=== PATIENT | male | born 1965 | race Asian ===

== ENCOUNTER → 2020-05-09 08:08 | Outpatient (CLI) | payer OTHER, SELFPAY ==
[2020-05-09 08:58] LABS: COVID19 -Nasal RAPID Negative (Negative)
== END ==
PROVIDERS: PCP Family Medicine; Visit Provider Nurse Practitioner
DX: Z20.822 Contact with and (suspected) exposure to COVID-19 (principal)
CPT/HCPCS: 87635

== ENCOUNTER → 2020-07-15 09:19 | Outpatient (CLI) | payer OTHER, SELFPAY ==
[2020-07-15 11:11] LABS: COVID19 -Nasal RAPID Negative (Negative)
== END ==
PROVIDERS: PCP Family Medicine; Visit Provider Physician Assistant
DX: Z01.812 Encounter for preprocedural laboratory examination (principal); Z20.822 Contact with and (suspected) exposure to COVID-19
CPT/HCPCS: 87635

== ENCOUNTER 2020-07-17 12:25 | Day surgery (SDC) | payer OTHER, SELFPAY ==
--- NOTE | 2020-07-17 | PATH_ITS ---
[facility] Accession Number: [id number] . 01 Material submitted: . rectum - RECTAL POLYP 6MM . 02 Diagnosis: Rectal Polyp 6 mm: Portions of tubular adenoma x2. Portion of hyperplastic polyp x1. [facility] 07/22/2020 1117 Local . 02 Electronically signed: . Arely Sharp MD, Pathologist NPI- [id number] . 01 Gross description: . The specimen is received in formalin, labeled rectal polyp, and consists of three manrique-pink fragments of soft tissue measuring 0.6 x 0.5 x 0.2 cm in aggregate. The specimen is entirely submitted in cassette A1. ([id number]) /[facility] 07/18/2020 1547 Local . 02 Pathologist provided ICD-10: Z12.11, K63.5 . 02 CPT . 889780 Performed at: 01 [facility] [address] [facility], [place], [place] [id number] MD Damaso Beltran MD Phone: [phone] Performed at: 02 [facility] [address] [place], [place] [id number] MD Anahy Marrufo MD Phone: [phone]
--- NOTE | 2020-07-17 11:44 | PM.HP.1 ---
History of Present Illness History of Present Illness Date Patient Seen: 07/17/20 Chief complaint: PRC Narrative: 55 year old female comes in today for consideration of a screening colonoscopy. Last colonoscopy in 2016, had two 3-4 mm tubular adenomas in the ascending colon, one 3 mm polyp in the cecum with no diagnostic abnormality, and one 10 mm polyp in the sigmoid suggesting a mucosal prolapse. There have been no lower GI symptoms suggesting disease such as change in bowel habits, bleeding, abdominal pain or anemia. There's been no family history of colon cancer or colon polyps. Overall health issues have been stable, including no major cardiac events for at least 6 weeks. PCP: Dr. 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 Meds Home Medications and Allergies Home Medications Medication Instructions Recorded Confirmed Type emtricitabine-tenofovir (TDF) 1 tab PO DAILY 07/17/20 07/17/20 History [Truvada] fluticasone propionate [Flonase] 1 spray INTRANASAL PRN PRN 07/17/20 07/17/20 History loratadine [Claritin] 10 mg PO DAILY 07/17/20 07/17/20 History Allergies Allergy/AdvReac Type Severity Reaction Status Date / Time No Known Drug Allergies Allergy Verified 07/17/20 12:39 Review of Systems Review of Systems ROS: Yes All systems reviewed with the patient and are negative except as otherwise documented Exam Narrative Exam Narrative: GENERAL: Alert and oriented, appearing stated age and in no acute distress. HEENT: Head normocephalic/atraumatic. Pupils equal, round, and reactive to light and accomodation. Extraocular muscles intact. Tympanic membranes clear. Nasal mucosa moist, septum midline. Oral mucosa moist, no lesions. Neck soft and supple, no lymphadenopathy. LUNGS: Clear to ausculation bilaterally, no wheezes, rhonchi or rales. CV: Normal S1 and S2 with regular rate and rhythm, no audible murmurs, rubs or gallops. ABDOMEN: Soft, non-tender, non-distended, no organomegaly. Positive bowel sounds. EXTREMITIES: No clubbing, cyanosis, or edema. NEURO: Cranial nerves II through XII grossly intact, no focal deficits. PSYCH: Alert and oriented x 3. SKIN: No concerning lesions. Assessment & Plan Assessment & Plan narrative: 1. History of colon polyps 2. Screening for colon cancer Plan for colonoscopy. The nature and character of the procedure as well as anticipated results were discussed. The possibility of not completing the procedure was also discussed. Possible complications including aspiration pneumonia, bleeding, perforation and reaction to medications either for sedation or preparation and missed lesions were discussed. Questions were answered and proceeding to the colonoscopy was elected. Informed consent signed. I sincerely appreciate the referral allowing me to participate in this patient's care. Please contact me with any questions or concerns.
--- NOTE | 2020-07-17 11:53 | PM.OP.ENDO ---
Operative Date/Time/Diagnoses Date of procedure: 07/17/20 Procedure Notes SCOAP/Timeout: 1:58 p.m. Procedure in detail: ENDOSCOPIST: Samina Montoya MD Sedation RN: Marilou Antonio RN Sedation start time: 1:59 p.m. Sedation end time: 2:17 p.m. PROCEDURE: Colonoscopy with biopsy INDICATIONS: 1. History of colon polyps 2. Screening for colon cancer MEDICATION: Levsin 0.125 mg sublingual, incremental doses of Versed and fentanyl until appropriate level sedation achieved. ASA CLASS: 2 CECAL WITHDRAWAL TIME: 9 minutes COMPLICATIONS: None. EXTENT OF PROCEDURE: Cecum. QUALITY OF PREP: Good with portions of liquid stool. PROCEDURE: Prior to insertion of the colonoscope, a digital rectal examination was accomplished with circumferential palpation of the distal rectal mucosa without significant findings being noted. The high-definition colonoscope was passed into the rectum in the usual fashion and advanced over to the cecum without difficulty. The ileocecal valve, appendiceal stoma, and medial wall all could be inspected and no abnormalities were seen. ASCENDING COLON: As the colonoscope was withdrawn, care was taken to expose and inspect the haustral folds and no abnormalities were seen. HEPATIC FLEXURE: Normal, no polyps, diverticula or other abnormalities. TRANSVERSE COLON: Normal, no polyps, diverticula or other abnormalities. DESCENDING COLON: Normal, no polyps, diverticula or other abnormalities. SIGMOID COLON: Normal, no polyps, diverticula or other abnormalities. RECTUM: A 6 mm polyp was removed with cold biopsy forceps. J maneuver was produced. There was no significant perianal disease. The J maneuver was broken. The remainder of the rectum was inspected and there was minor external hemorrhoid disease. The scope was withdrawn. IMPRESSION: 1. Rectal polyp x1, 6 mm, removed with cold biopsy forceps 2. Mild external hemorrhoid disease PLAN: 1. Follow-up in clinic status post pathology results. The possibility of a missed lesion including a malignancy has been discussed with the patient previously. Potential alarm symptoms have been discussed and should be reported immediately.
[2020-07-17] MEDS: HYOSCYAMINE 0.125 MG TABLET PO (12:47)
[2020-07-17] MEDS: LACTATED RINGERS 1,000 ML 200 ML IV (12:48)
[2020-07-17 12:49] VITALS: BP 142/95; PULSE 71; RESP 16; TEMP 36.6; O2SAT 98; BMI 25.5
[2020-07-17] MEDS: fentaNYL 250 MCG/5 ML INJ IV (13:59)
[2020-07-17] MEDS: MIDAZOLAM 5 MG/5 ML VIAL IV (14:04)
[2020-07-17 14:23] VITALS: BP 111/77; PULSE 58; RESP 16; TEMP 36.6; O2SAT 96
--- NOTE | 2020-07-17 14:24 | SUR.PHASEI ---
Received to PACU after sedation anesthesia. Report received from RUBEN Zamarripa.
[2020-07-17 14:28] VITALS: BP 110/77; PULSE 75; RESP 18; O2SAT 97
[2020-07-17 14:32] VITALS: BP 116/85; PULSE 75; RESP 18; O2SAT 97
[2020-07-17 14:59] VITALS: BP 121/88; PULSE 66; RESP 16; TEMP 36.7; O2SAT 97
== END 2020-07-17 14:58 | disposition home or self-care (01) ==
PROVIDERS: PCP Family Medicine; Referring Provider Student in an Organized Health Care Education/Training Program; Visit Provider Student in an Organized Health Care Education/Training Program
PROC: 0DJD8ZZ Inspection of Lower Intestinal Tract, Via Natural or Artificial Opening Endoscopic (ICD-10-PCS; CPT 45378; principal; 2020-07-17 13:45)
DX: Z12.11 Encounter for screening for malignant neoplasm of colon (principal); Z86.010 Personal history of colon polyps; E78.5 Hyperlipidemia, unspecified; K64.4 Residual hemorrhoidal skin tags; D12.8 Benign neoplasm of rectum
CPT/HCPCS: 45380; J2250; J3010

== ENCOUNTER → 2021-08-17 10:42 | Outpatient (CLI) | payer OTHER, SELFPAY ==
--- NOTE | 2021-08-17 10:45 | DI.RAD.S_ITS ---
PROCEDURE: XR TOE RT MIN 2V INDICATIONS: RIGHT GREAT TOE PAIN TECHNIQUE: 3 views of the 1st toe(s) acquired. COMPARISON: None. FINDINGS: Bones: No fractures or dislocations. No suspicious bony lesions. Soft tissues: No suspicious soft tissue densities. IMPRESSION: Normal right 1st toe Approved by: Ryan Hair M.D. on 08/17/2021 at 11:31
== END ==
PROVIDERS: PCP Family Medicine; Referring Provider Family Medicine; Visit Provider Family Medicine
DX: M79.674 Pain in right toe(s) (principal)
CPT/HCPCS: 73660

== ENCOUNTER → 2022-03-15 09:46 | Outpatient (CLI) | payer OTHER, SELFPAY ==
[2022-03-15 11:30] LABS: Prostate Specific Antigen Scrn 4.11 ng/mL (0.1-4.0)
== END ==
PROVIDERS: PCP Family Medicine; Referring Provider Urology; Visit Provider Urology
DX: Z12.5 Encounter for screening for malignant neoplasm of prostate (principal)
CPT/HCPCS: 36415; G0103

== ENCOUNTER 2022-04-13 07:41 | Day surgery (SDC) | payer OTHER, SELFPAY ==
[2022-04-08 12:36] VITALS: BMI 26.6
[2022-04-13] VITALS (9 sets, daily range): BP systolic 117–132; BP diastolic 76–86; PULSE 66–91; RESP 15–24; TEMP 36.1–37.3; O2SAT 96–98; BMI 26.6
[2022-04-13] MEDS: LACTATED RINGERS 1,000 ML 100 ML IV (07:59)
--- NOTE | 2022-04-13 08:44 | PM.HP.1 ---
History of Present Illness History of Present Illness Date Patient Seen: 04/13/22 Chief complaint: Left Hernia Repair - Inguinal Narrative: 56y.o man with a left inguinal hernia here for open elective inguinal hernia repair. Patient History Medical History (Updated 04/11/22 @ 15:26 by Don Duke MD) Elevated PSA Family history of prostate cancer in father Lower urinary tract symptoms Nocturia Post-void dribbling Secondhand smoke exposure Splitting of urinary stream Surgical History Hx of hernia repair Family & Social History Family History Father Cancer Grandfather Gallstones Grandmother Diabetes mellitus Breast cancer Social History: household members none lives independently Yes Tobacco & Substance use: Smoking Status Never smoker alcohol intake current alcohol intake frequency a few times a month Substance Use Type does not use Meds Home Medications and Allergies Home Medications Medication Instructions Recorded Confirmed Type fluticasone propionate 50 1 spray intranasal PRN PRN 07/17/20 04/13/22 History mcg/actuation nasal allergies spray,suspension tadalafil 5 mg tablet (Cialis) 5 mg PO DAILY Lower urinary tract 09/01/21 04/13/22 Rx symptoms #30 tabs cetirizine 10 mg tablet (Zyrtec) 10 mg PO DAILY 04/08/22 04/13/22 History Allergies Allergy/AdvReac Type Severity Reaction Status Date / Time No Known Drug Allergies Allergy Verified 04/13/22 08:07 Exam Vital Signs (past 8 hours): - 04/13/22 08:10 Temperature 99.1 F Pulse Rate 67 Respiratory Rate 16 Blood Pressure 131/80 Pulse Oximetry 98 Oxygen Delivery Method Room Air Oxygen Delivery Method Room Air Narrative Exam Narrative: Gen-Adult man alert and oriented no distress Abdomen-Left inguinal hernia marked with my initials. Assessment & Plan Assessment and plan (1) Left inguinal hernia: Status: Acute Assessment & Plan narrative: 56M with a symptomatic left inguinal hernia here for elective open left inguinal hernia repair. Questions have been answered. We discussed operative risks including bleeding, infection, reoccurrence, damage to surrounding structures were discussed. He provides his verbal and written consent to proceed. Time Spent With Patient Critical Care time: I spent a total of [] minutes of critical care time on this patient's care today; this time is exclusive of procedural time.
[2022-04-13] MEDS: CEFAZOLIN 2 GM/100 ML PREMIX 100 ML IV (08:58)
--- NOTE | 2022-04-13 09:04 | SUR.OPER ---
Supine on padded OR bed, head on pillow, arms secured on padded arm boards at <90 degrees abduction, legs uncrossed, safety belt at thigh.
[2022-04-13] MEDS: BUPIVACAINE 0.25% (PF) VIAL 30 ML INJ (09:12)
[2022-04-13] MEDS: KETOROLAC 30 MG/ML VIAL IV (10:07)
--- NOTE | 2022-04-13 10:07 | PM.OP.1 ---
Operative Date/Time/Diagnoses Date of procedure: 04/13/22 Time of procedure: 10:08 Pre-op diagnosis: Left inguinal hernia Post-op diagnosis: same Procedure & Clinicians Procedure: Open left inguinal repair with mesh Same procedure as scheduled: Yes Indications: Symptomatic reducible left inguinal hernia Surgeon: Conrad Krishnan Anesthesia Type: General Operative Notes Findings: Direct defect. No indirect hernia Specimen(s): none sent Estimated Blood Loss (mL): 10 Procedure in detail: The patient was placed supine on the table and bilateral lower extremity compression devices were applied. Anesthesia was induced they were intubated with an LMA and received Ancef. A time-out was performed. They were prepped and draped in sterile fashion. The left external inguinal ring and the anterior superior iliac crest were identified and marked. 1 finger breath above the inguinal ligament the skin was infiltrated with 0.25% bupivacaine. The skin incision was made, the subcutaneous tissues were divided with electrocautery exposing the external oblique aponeurosis which was then opened along the direction of its fibers. Using blunt dissection the internal oblique aporneurosis was from the external oblique upper leaflet. The cord was carefully dissected away from the inguinal canal adjacent to the pubic tubercle. The cord including the vas deferens, testicular bloody supply, ilioguinal and genital nerve were encircled with a Flagler drain. A direct floor defect was identified and it was reduced into the abdomen. The cremasteric fibers surrounding the cord were divided adjacent to the internal ring. The vas deferens and the testicular vessels were preserved and protected. The cord contents were carefully explored. There was no evidence of a indirect hernia. A 7x 15 cm lightweight Bard Pro Loop hernia mesh was anchored to the insertion of the rectus muscle at the pubic tubercle such that there was approximately 2 cm of tubercle overlap with Ethibond. The inferior edge of the mesh was secured to the shelving edge of the inguinal ligament using Ethibond. Interrupted 3 0 Vicryl suture was used to anchor the superior aspect of the mesh to the conjoined tendon in several places. The tails were then reapproximated loosely around the spermatic cord. The tails of the mesh were then tucked under the external oblique aponeurosis. The repair was checked for hemostasis. The wound was irrigated with sterile saline. The external oblique aponeurosis was reapproximated in a running fashion using 3 0 Vicryl. The subcutaneous tissues were reapproximated with 3 0 Vicryl skin closed with 4 0 Monocryl followed by the application of Dermabond. At the end of the operation I ensured that both testicles were within the scrotum. The sponge instrument count at the end operation was correct. The patient emerged from anesthesia was extubated and transferred to the postoperative care unit in stable condition. A total of 30 ml of of 0.25% bupivicaine was used to infiltrate the skin. Complications: none Post-operative Condition: stable Disposition: same day surgery
== END 2022-04-13 10:35 | disposition home or self-care (01) ==
PROVIDERS: PCP Family Medicine; Referring Provider Surgery; Visit Provider Surgery
PROC: (CPT 49505; principal; 2022-04-13 08:45)
DX: K40.90 Unilateral inguinal hernia, without obstruction or gangrene, not specified as recurrent (principal)
CPT/HCPCS: 49505; J0690; J1100; J1885; J2250; J2405; J2704; J3010; J3490

== ENCOUNTER → 2022-05-06 11:31 | Outpatient (CLI) | payer OTHER, SELFPAY ==
[2022-05-10 10:11] LABS: PSA Free % 12.3 % (.); PSA, Total 4.8 ng/mL (0.0-4.0)
== END ==
PROVIDERS: PCP Family Medicine; Referring Provider Urology; Visit Provider Urology
DX: R97.20 Elevated prostate specific antigen [PSA] (principal); Z80.42 Family history of malignant neoplasm of prostate
CPT/HCPCS: 36415; 84153; 84154

== ENCOUNTER → 2022-05-30 14:04 | Outpatient (CLI) | payer OTHER, SELFPAY ==
--- NOTE | 2022-05-30 14:06 | DI.MRI.S_ITS ---
PROCEDURE: MR PELVIC PROSTATE PROTOCOL INDICATIONS: Elevated PSA family history of prostate cancer TECHNIQUE: Coronal HASTE, axial T1 FSE with fat saturation, 3-plane nonbreath-hold T2 FSE. After the administration of contrast, dynamic axial, delayed axial and coronal VIBE or 2-D FLASH with fat saturation through the pelvis. Optional diffusion weighted imaging and ADC may be performed. COMPARISON: None. FINDINGS: Image quality: Diffusion weighted and dynamic contrast enhanced images are diagnostic. Prostate: Gland size is 5.3 x 3.4 x 5.9 cm; ellipsoid gland volume is 56 mL. No PI-RADS 3-5 lesions. Genitourinary system: Bladder wall thickness is normal. Bladder wall is trabeculated. Distal ureters are non distended. Bowel and peritoneum: No pathologic free pelvic fluid. Inferior colon and small bowel loops are normal in caliber. Nodes and vessels: No pelvic or inguinal adenopathy by size criteria. Iliac vessels are normal in caliber. Soft tissues: No inguinal hernias. Bones: Marrow demonstrates normal overall signal, without lesions to suggest metastases. IMPRESSION: Prostatomegaly, volume of 56 mL. No PI-RADS 3 5 lesions. Dictated by: Kobe Sosa M.D. on 05/30/2022 at 16:53 Approved by: Kobe Sosa M.D. on 05/30/2022 at 16:55
== END ==
PROVIDERS: PCP Family Medicine; Referring Provider Urology; Visit Provider Urology
DX: R97.20 Elevated prostate specific antigen [PSA] (principal); Z80.42 Family history of malignant neoplasm of prostate
CPT/HCPCS: 72197; A9579

== ENCOUNTER → 2022-08-23 09:23 | Outpatient (CLI) | payer OTHER, SELFPAY ==
[2022-08-26 07:19] LABS: PSA Free % 12.1 % (.); PSA, Total 3.9 ng/mL (0.0-4.0)
== END ==
PROVIDERS: PCP Family Medicine; Referring Provider Urology; Visit Provider Urology
DX: R97.20 Elevated prostate specific antigen [PSA] (principal); Z80.42 Family history of malignant neoplasm of prostate
CPT/HCPCS: 36415; 84153; 84154

== ENCOUNTER → 2022-11-29 10:25 | Outpatient (CLI) | payer OTHER, SELFPAY | PROVIDERS: PCP Family Medicine; Referring Provider Urology; Visit Provider Urology | DX: R97.20 Elevated prostate specific antigen [PSA] (principal) | CPT/HCPCS: 36415; 84153; 84154 ==

== ENCOUNTER → 2023-03-31 11:53 | Outpatient (CLI) | payer OTHER, SELFPAY ==
--- NOTE | 2023-03-31 11:55 | DI.CT.S_ITS ---
PROCEDURE: CT ABDOMEN PELVIS W CON INDICATIONS: L abdominal pain hx left inguinal epigastric hernia repair TECHNIQUE: After the administration of intravenous contrast, axial sections acquired from the lung bases to the pubic symphysis. Coronal and sagittal reformats were performed. For radiation dose reduction, the following was used: automated exposure control, adjustment of mA and/or kV according to patient size. COMPARISON: MR, MR PELVIC PROSTATE PROTOCOL, 05/30/2022, 15:05. FINDINGS: Image quality: Diagnostic. Lower Chest: No significant findings. Small hiatal hernia. ABDOMEN: Liver: There is a 1.1 cm hypodense nodule in the right hepatic lobe, most likely cysts. Mild hepatic steatosis. No solid mass. Gallbladder: Gallbladder is contracted. There are gallstones. Biliary ducts: No biliary dilation. Pancreas: No ductal dilation. Spleen: Size is within normal limits. Adrenal Glands: Bilateral small adrenal nodules, measuring 1.3 cm on the left and 1.0 cm on the right.. Kidneys and Ureters: No hydronephrosis. No solid mass. No complex renal cystic lesion which requires follow up. Stomach and Bowel: There is mild gastric antral thickening likely secondary to inadequate distention. Normal colonic caliber. Mild colonic wall thickening involving the sigmoid colon. There is a large amount of stool in colon and rectum. Normal appendix Peritoneum: No abnormal intraperitoneal fluid. No free air. Ventral Wall: No significant ventral hernia. Abdominal Nodes: No retroperitoneal or mesenteric adenopathy by size criteria. Vessels: Aorta and inferior vena cava are normal in size. PELVIS: Pelvic Organs: Unremarkable. Bladder: No bladder wall thickening, accounting for underdistention. Pelvic Nodes: No enlarged lymph nodes. Miscellaneous: Mild fat stranding in the left inguinal area. No inguinal hernias are seen. There are multiple small subcutaneous nodules in the anterior abdominal wall. Bones: No aggressive osseous abnormality. IMPRESSION: 1. Mild stranding in the right groin likely granulation tissue along the surgical scar. No findings to suggest recurrent hernia, infection or hematoma. 2. Mild wall thickening in the sigmoid colon. Differential diagnoses are mild colitis versus artifact from inadequate distention. 3. Cholelithiasis. 4. Bilateral small adrenal nodules. Recommend adrenal protocol CT or MRI for further evaluation. 5. Prostate is enlarged and heterogeneous. Please correlate with PSA. 6. Numerous small subcutaneous nodules in anterior abdominal wall, uncertain etiology or clinical significance. These could be related to subcutaneous injections. Please correlate clinically. Dictated by: Bobby Montemayor M.D. on 03/31/2023 at 15:08 Approved by: Bobby Montemayor M.D. on 03/31/2023 at 16:19
== END ==
LOC: CT 11:54
PROVIDERS: PCP Family Medicine; Referring Provider Surgery; Visit Provider Surgery
DX: K80.20 Calculus of gallbladder without cholecystitis without obstruction (principal); E27.9 Disorder of adrenal gland, unspecified; N40.0 Benign prostatic hyperplasia without lower urinary tract symptoms; R19.09 Other intra-abdominal and pelvic swelling, mass and lump; R10.9 Unspecified abdominal pain
CPT/HCPCS: 74177; Q9967

== ENCOUNTER → 2023-05-31 10:40 | Outpatient (CLI) | payer OTHER, SELFPAY ==
[2023-05-31 12:25] LABS: Prostate Specific Antigen 4.24 ng/mL (0.10-4.00)
== END ==
LOC: LAB 10:43
PROVIDERS: PCP Family Medicine; Referring Provider Urology; Visit Provider Urology
DX: R97.20 Elevated prostate specific antigen [PSA] (principal)
CPT/HCPCS: 36415; 84153

== ENCOUNTER → 2023-09-01 14:25 | Outpatient (CLI) | payer OTHER, SELFPAY | LOC: LAB 14:26 | PROVIDERS: PCP Family Medicine; Referring Provider Urology; Visit Provider Urology | DX: R97.20 Elevated prostate specific antigen [PSA] (principal); Z80.42 Family history of malignant neoplasm of prostate | CPT/HCPCS: 36415; 84153; 84154 ==

== ENCOUNTER → 2023-12-13 11:03 | Outpatient (CLI) | payer OTHER, SELFPAY | LOC: LAB 11:04 | PROVIDERS: PCP Family Medicine; Referring Provider Urology; Visit Provider Urology | DX: R97.20 Elevated prostate specific antigen [PSA] (principal); Z80.42 Family history of malignant neoplasm of prostate | CPT/HCPCS: 36415; 84153; 84154 ==

== ENCOUNTER → 2024-01-01 13:12 | Outpatient (CLI) | payer OTHER, SELFPAY | PROVIDERS: PCP Family Medicine; Visit Provider Urology | DX: N40.1 Benign prostatic hyperplasia with lower urinary tract symptoms (principal); N13.8 Other obstructive and reflux uropathy; R97.20 Elevated prostate specific antigen [PSA]; Z80.42 Family history of malignant neoplasm of prostate; R39.198 Other difficulties with micturition; Z77.22 Contact with and (suspected) exposure to environmental tobacco smoke (acute) (chronic); R30.0 Dysuria; N41.1 Chronic prostatitis | CPT/HCPCS: 87086 ==

== ENCOUNTER → 2024-01-29 10:17 | Outpatient (CLI) | payer OTHER, SELFPAY ==
[2024-01-30 12:11] LABS: PSA Free % 12.7 % (.); PSA, Total 5.1 ng/mL (0.0-4.0)
== END ==
PROVIDERS: PCP Family Medicine; Referring Provider Urology; Visit Provider Urology
DX: R97.20 Elevated prostate specific antigen [PSA] (principal)
CPT/HCPCS: 36415; 84153; 84154

== ENCOUNTER → 2024-02-13 14:11 | Outpatient (CLI) | payer OTHER, SELFPAY | PROVIDERS: PCP Family Medicine; Visit Provider Urology | DX: R39.9 Unspecified symptoms and signs involving the genitourinary system (principal) | CPT/HCPCS: 87086 ==

== ENCOUNTER → 2024-04-11 14:30 | Outpatient (CLI) | payer OTHER, SELFPAY ==
--- NOTE | 2024-04-11 14:32 | DI.RAD.S_ITS ---
PROCEDURE: XR FOOT RT MIN 3V INDICATIONS: FOOT PAIN TECHNIQUE: 3 views of the foot were acquired. COMPARISON: None. 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 No focal osseous lesions. Joints: Mild degeneration the 1st MTP and the 2nd through 5th interphalangeal joints Soft tissues: Minor calcification Achilles tendon insertion on the calcaneus. There is mild diffuse soft tissue swelling IMPRESSION: Chronic findings Dictated by: Bo Barron M.D. on 04/12/2024 at 10:18 Approved by: Bo Barron M.D. on 04/12/2024 at 10:19
== END ==
PROVIDERS: PCP Family Medicine; Referring Provider Family Medicine; Visit Provider Family Medicine
DX: M19.041 Primary osteoarthritis, right hand (principal); M79.671 Pain in right foot; M79.89 Other specified soft tissue disorders
CPT/HCPCS: 73630

== ENCOUNTER → 2024-05-06 10:17 | Outpatient (CLI) | payer OTHER, SELFPAY ==
[2024-05-07 07:08] LABS: PSA Free % 12.1 % (.); PSA, Total 4.7 ng/mL (0.0-4.0)
== END ==
LOC: LAB 10:17
PROVIDERS: PCP Family Medicine; Referring Provider Urology; Visit Provider Urology
DX: R97.20 Elevated prostate specific antigen [PSA] (principal); Z80.42 Family history of malignant neoplasm of prostate
CPT/HCPCS: 36415; 84153; 84154

== ENCOUNTER → 2024-07-23 07:52 | Outpatient (CLI) | payer OTHER, SELFPAY ==
[2024-07-24 07:09] LABS: PSA Free % 10.8 % (.); PSA, Total 4.9 ng/mL (0.0-4.0)
== END ==
PROVIDERS: PCP Family Medicine; Referring Provider Urology; Visit Provider Urology
DX: R97.20 Elevated prostate specific antigen [PSA] (principal); Z80.42 Family history of malignant neoplasm of prostate
CPT/HCPCS: 36415; 84153; 84154

== ENCOUNTER → 2024-08-05 16:31 | Outpatient (ROUT) | payer OTHER, SELFPAY ==
[2024-08-05 17:33] LABS: Influenza A - CEPHEID Flu A POSITIVE (NEGATIVE); Influenza B - CEPHEID Flu B NEGATIVE (NEGATIVE); Respiratory Syncytial Virus Negative (Negative)
[2024-08-05 17:35] LABS: COVID-19 CEPHEID 4-PLEX PCR Negative (Negative)
== END ==
LOC: LAB 16:31
PROVIDERS: PCP Family Medicine; Visit Provider Family Medicine
DX: R50.9 Fever, unspecified (principal)
CPT/HCPCS: 0241U

== ENCOUNTER → 2024-09-23 15:20 | Outpatient (CLI) | payer OTHER, SELFPAY ==
--- NOTE | 2024-09-23 15:21 | DI.MRI.S_ITS ---
PROCEDURE: MR PELVIC PROSTATE PROTOCOL INDICATIONS: 59 y/o M w/ elevated PSA, please eval PSA 4.9. TECHNIQUE: Coronal HASTE, axial T1 FSE with fat saturation, 3-plane nonbreath-hold T2 FSE. After the administration of contrast, dynamic axial, delayed axial and coronal VIBE or 2-D FLASH with fat saturation through the pelvis. Diffusion weighted imaging and ADC was performed. COMPARISON: Merged With [facility], , MR PELVIC PROSTATE PROTOCOL, 05/30/2022, 15:05. FINDINGS: Image quality: Diffusion weighted and dynamic contrast enhanced images are diagnostic. Prostate: Gland size is 5.7 x 5.5 x 3.8 cm; ellipsoid gland volume is 62 mL. Median lobe hypertrophy. Numerous BPH nodules. No significant intrinsic T1 hyperintense foci to suggest hemorrhage. No significant areas of ADC hypointensity in the peripheral zone. No suspicious foci of the T2 hypointense signal in the transitional zone. No PI-RADS 4 or 5 observations. Genitourinary system: Bladder wall thickness is normal. Distal ureters are non distended. Bowel and peritoneum: No pathologic free pelvic fluid. Inferior colon and small bowel loops are normal in caliber. Nodes and vessels: No pelvic or inguinal adenopathy by size criteria. Iliac vessels are normal in caliber. Soft tissues: No inguinal hernias. Left groin scar. Bones: Marrow demonstrates normal overall signal, without lesions to suggest metastases. IMPRESSION: 1. Prostatomegaly. Multiple BPH nodules with median lobe hypertrophy. 2. No PI-RADS 4 or 5 observations. 3. No enlarged lymph nodes. Dictated by: Derrell Dinero M.D. on 09/24/2024 at 12:14 Approved by: Derrell Dinero M.D. on 09/24/2024 at 12:25
== END ==
PROVIDERS: PCP Family Medicine; Referring Provider Urology; Visit Provider Urology
DX: N40.2 Nodular prostate without lower urinary tract symptoms (principal); R97.20 Elevated prostate specific antigen [PSA]
CPT/HCPCS: 72197; A9579

== ENCOUNTER → 2025-01-16 12:22 | Outpatient (CLI) | payer OTHER, SELFPAY ==
--- NOTE | 2025-01-16 12:24 | DI.RAD.S_ITS ---
PROCEDURE: XR KNEE RT 1TO2V INDICATIONS: Pain in right knee TECHNIQUE: 2 total images were obtained of the knee, including a standing AP view of both knees together. COMPARISON: None. FINDINGS: Bones: No fractures or dislocations. No suspicious bony lesions. There is mild medial femorotibial joint space narrowing seen on both sides, with associated remodeling changes including subchondral sclerosis and osteophyte formation along the jointline. Soft tissues: No significant joint effusion. No suspicious soft tissue calcifications. IMPRESSION: Mild medial femorotibial joint space narrowing seen on both sides. If it would be helpful for clinical management decision making, please consider a dedicated, scheduled knee MRI for further evaluation (assuming that there is no contraindication). Dictated by: José Antonio Vale M.D. on 01/18/2025 at 19:53 Approved by: José Antonio Vale M.D. on 01/18/2025 at 19:53
== END ==
LOC: RAD 12:23
PROVIDERS: PCP Family Medicine; Referring Provider Family Medicine; Visit Provider Family Medicine
DX: M25.561 Pain in right knee (principal)
CPT/HCPCS: 73560

== ENCOUNTER → 2025-02-25 16:35 | Outpatient (CLI) | payer OTHER, SELFPAY ==
--- NOTE | 2025-02-25 16:36 | DI.MRI.S_ITS ---
PROCEDURE: MR KNEE RT WO CON INDICATIONS: right knee pain TECHNIQUE: Noncontrast sagittal PD fast spin echo and T2 fast spin echo with fat saturation, sagittal 3-D FLASH with fat saturation; coronal T1 spin echo and PD fast spin echo with fat saturation, and axial PD fast spin echo with fat saturation through the knee. COMPARISON: None. FINDINGS: Quality: Adequate Menisci: Medial meniscus: Complex tearing of the body with meniscal fragment extending into the meniscotibial recess. Lateral meniscus: Intact Cruciate ligaments: Anterior cruciate ligament: Intact Posterior cruciate ligament: Intact Collateral ligaments: Medial collateral ligament: Edema along the ligament without discrete tear. Lateral collateral ligament complex: Partial tear of the fibular collateral ligament at the femoral attachment. The biceps femoris and iliotibial band are intact. Popliteus tendon appears intact. Extensor mechanism: Quadriceps tendon: Intact Patellar tendon: Intact Retinaculum: Intact Fat pads: Unremarkable Cartilage: Full-thickness cartilage loss in the central weight-bearing portion of the medial femoral condyle. Bones: No fracture. Fluid spaces: Joint: Small effusion. Popliteal cyst: None Other: None IMPRESSION: Complex medial meniscus tear. Grade 2 lateral collateral ligament sprain. Grade 1 medial collateral ligament sprain. High-grade cartilage defect in the medial femoral condyle. Effusion. Dictated by: Chad Ladd M.D. on 02/26/2025 at 12:38 Approved by: Chad Ladd M.D. on 02/26/2025 at 13:17
== END ==
LOC: MRI 16:36
PROVIDERS: PCP Family Medicine; Referring Provider Orthopaedic Surgery; Visit Provider Orthopaedic Surgery
DX: S83.231A Complex tear of medial meniscus, current injury, right knee, initial encounter (principal); S83.421A Sprain of lateral collateral ligament of right knee, initial encounter; S83.411A Sprain of medial collateral ligament of right knee, initial encounter; M25.461 Effusion, right knee; M25.561 Pain in right knee
CPT/HCPCS: 73721